=== PATIENT | female | born 1945 | race Caucasian/White ===

== ENCOUNTER 2018-05-06 06:25 | Emergency (ER) | payer MEDICARE, OTHER | END 2018-05-06 08:28 | disposition home or self-care (01) | LOC: FTE 06:25 | DX: M54.2 Cervicalgia (principal); I12.9 Hypertensive chronic kidney disease with stage 1 through stage 4 chronic kidney disease, or unspecified chronic kidney disease; N18.9 Chronic kidney disease, unspecified; E11.22 Type 2 diabetes mellitus with diabetic chronic kidney disease; Z79.82 Long term (current) use of aspirin; Z79.84 Long term (current) use of oral hypoglycemic drugs | CPT/HCPCS: 72040; 99283-25 ==

== ENCOUNTER 2018-05-08 18:23 | Inpatient (IN) | payer MEDICARE, OTHER ==
[~2018-05-08 18:23] MED LIST: CA CHLORIDE 10% 10 ML SYRINGE; NA BICARBONATE 8.4% 50 ML SYG
[2018-05-08] MEDS: ALBUTEROL 0.5% (NEB) 2.5 MG/0.5 ML AMP INH (19:28)
[2018-05-08 19:40] LABS: ADD MAN DIFF? NO
[2018-05-08 19:42] LABS: WHITE BLOOD COUNT 8.7 10^3/ul (4.8-10.8)
[2018-05-08 19:42] LABS: BASOPHILS % 0.2 % (0.0-2.0); HEMATOCRIT 30.7 % (37.0-47.0); HEMOGLOBIN 10.5 g/dl (12.0-16.0); LYMPHOCYTES # 0.7 10^3/ul (0.8-2.9); LYMPHOCYTES % 7.9 % (15.0-51.0); MEAN CORPUSCULAR HEMOGLOBIN 33.7 pg (29.0-33.0); MEAN CORPUSCULAR HGB CONC 34.2 g/dl (32.0-37.0); MEAN CORPUSCULAR VOLUME 98.4 fl (82.0-101.0); MEAN PLATELET VOLUME 11.6 fl (7.4-10.4); MONOCYTE # 0.3 10^3/ul (0.3-0.9); MONOCYTES % 3.9 % (0.0-11.0); NEUTROPHIL # 7.5 10^3/ul (1.6-7.5); NEUTROPHILS % 86.4 % (39.0-77.0); PLATELET COUNT 184 10^3/UL (140-415); RED BLOOD COUNT 3.12 10^6/ul (4.20-5.40); RED CELL DISTRIBUTION WIDTH 12.7 % (11.5-14.5)
[2018-05-08 19:46] LABS: INR 1.29; PROTIME 16.3 Sec (11.9-14.9); PT RATIO 1.3
[2018-05-08 19:47] LABS: PARTIAL THROMBOPLASTIN TIME 29.7 Sec (23.0-35.0)
[2018-05-08] MEDS: niCARdipine-NS 0.1MG/ML DRIP 200 ML IV (19:47)
[2018-05-08 20:17] LABS: ALANINE AMINOTRANSFERASE 164 IU/L (13-69); ALBUMIN 4.1 g/dl (3.3-4.9); ALBUMIN/GLOBULIN RATIO 1.28; ALKALINE PHOSPHATASE 176 IU/L (42-121); ANION GAP 26 (8-16); ASPARTATE AMINO TRANSFERASE 117 IU/L (15-46); BILIRUBIN,INDIRECT 0.1 mg/dl (0-1.1); BILIRUBIN,TOTAL 0.1 mg/dl (0.2-1.3); BLOOD UREA NITROGEN 70 mg/dl (7-20); CALCIUM 8.2 mg/dl (8.4-10.2); CARBON DIOXIDE 20 mmol/L (21-31); CHLORIDE 84 mmol/L (97-110); CREATININE 6.35 mg/dl (0.44-1.00); LIPASE 58 U/L (23-300); SODIUM 122 mmol/L (135-144); TOTAL PROTEIN 7.3 g/dl (6.1-8.1)
[2018-05-08 20:19] LABS: POTASSIUM 7.9 mmol/L (3.5-5.1)
[2018-05-08 20:20] LABS: GLUCOSE 583 mg/dl (70-220)
[2018-05-08 20:30] LABS: TROPONIN-I < 0.012 ng/ml (0.000-0.120)
[2018-05-08] MEDS: IODIXANOL LOCM 100 ML BTL ×2 (21:09→21:45)
[2018-05-08] MEDS: SOD CHLORIDE 0.9% 100 ML ×2 (21:09→21:45)
[2018-05-08] MEDS: INSULIN LISPRO 100 UNIT/ML VIAL SC (21:24)
[2018-05-08] MEDS: SOD CHLORIDE 0.9% 1,000 ML IV (22:27)
[2018-05-08] MEDS ORDERED: morphine 2 MG INJ IV (22:30)
[2018-05-08] MEDS ORDERED: NACL 0.9% 3 ML SYG IV (22:30)
[2018-05-08 22:31] LABS: HEPATITIS B SURFACE ANTIGEN NEGATIVE (NEGATIVE)
[2018-05-08] MEDS: ACCU-CHEK XX (23:00)
[2018-05-08] MEDS ORDERED: DEXTROSE 50% 50 ML SYRINGE IV (23:00)
[2018-05-08 23:26] LABS: CREATINE KINASE 127 IU/L (23-200)
[2018-05-08 23:39] LABS: CK INDEX 2.3; TROPONIN-I 0.063 ng/ml (0.000-0.120)
[2018-05-09] MEDS: INSULIN HUMAN REGULAR 100 UNIT in SOD CHLORIDE 0.9% 99 ML IV (00:48)
[2018-05-09] MEDS: niCARdipine-NS 0.1MG/ML DRIP 200 ML IV ×2 (00:49→05:31)
[2018-05-09] MEDS: ACCU-CHEK XX ×8 (01:00→07:00)
[2018-05-09] MEDS: DEXTROSE 50% 50 ML SYRINGE IV (04:25)
[2018-05-09 05:23] LABS: ADD MAN DIFF? NO
[2018-05-09 05:26] LABS: WHITE BLOOD COUNT 10.4 10^3/ul (4.8-10.8)
[2018-05-09 05:26] LABS: BASOPHILS % 0.2 % (0.0-2.0); EOSINOPHILS % 0.2 % (0.0-7.0); HEMATOCRIT 29.2 % (37.0-47.0); LYMPHOCYTES # 1.1 10^3/ul (0.8-2.9); LYMPHOCYTES % 10.3 % (15.0-51.0); MEAN CORPUSCULAR HEMOGLOBIN 33.1 pg (29.0-33.0); MEAN CORPUSCULAR HGB CONC 34.2 g/dl (32.0-37.0); MEAN CORPUSCULAR VOLUME 96.7 fl (82.0-101.0); MEAN PLATELET VOLUME 10.1 fl (7.4-10.4); MONOCYTE # 0.9 10^3/ul (0.3-0.9); MONOCYTES % 8.6 % (0.0-11.0); NEUTROPHIL # 8.3 10^3/ul (1.6-7.5); NEUTROPHILS % 79.4 % (39.0-77.0); NUCLEATED RED BLOOD CELLS% 0.2 /100WBC (0.0-0.0); PLATELET COUNT 203 10^3/UL (140-415); RED BLOOD COUNT 3.02 10^6/ul (4.20-5.40); RED CELL DISTRIBUTION WIDTH 12.5 % (11.5-14.5)
[2018-05-09] MEDS: DEXTROSE 5%-0.9% NACL 1,000 ML IV (05:29)
[2018-05-09] MEDS ORDERED: GLUCOSE GEL 15 GRAM TUBE PO ×2 (05:30)
[2018-05-09] MEDS ORDERED: GLUCAGON 1 MG INJ IM (05:30)
[2018-05-09] MEDS ORDERED: GLUCOSE GEL 15 GRAM TUBE BUCCAL (05:30)
[2018-05-09] MEDS ORDERED: DEXTROSE 50% 50 ML SYRINGE IV ×2 (05:30)
[2018-05-09 05:48] LABS: CREATINE KINASE 109 IU/L (23-200)
[2018-05-09 05:49] LABS: HEMOGLOBIN A1C 9.1 % (0-5.9)
[2018-05-09 05:59] LABS: CK INDEX 2.3
[2018-05-09 06:01] LABS: TROPONIN-I 0.027 ng/ml (0.000-0.120)
[2018-05-09 06:06] LABS: ALANINE AMINOTRANSFERASE 158 IU/L (13-69); ALBUMIN 3.2 g/dl (3.3-4.9); ALBUMIN/GLOBULIN RATIO 0.94; ALKALINE PHOSPHATASE 136 IU/L (42-121); ANION GAP 17 (8-16); ASPARTATE AMINO TRANSFERASE 76 IU/L (15-46); BILIRUBIN,INDIRECT 0.4 mg/dl (0-1.1); BILIRUBIN,TOTAL 0.4 mg/dl (0.2-1.3); BLOOD UREA NITROGEN 22 mg/dl (7-20); CALCIUM 9.4 mg/dl (8.4-10.2); CARBON DIOXIDE 29 mmol/L (21-31); CHLORIDE 90 mmol/L (97-110); CREATININE 2.73 mg/dl (0.44-1.00); GLUCOSE 128 mg/dl (70-220); MAGNESIUM 1.9 mg/dl (1.7-2.5); PHOSPHORUS 3.9 mg/dl (2.5-4.9); POTASSIUM 3.8 mmol/L (3.5-5.1); SODIUM 132 mmol/L (135-144); TOTAL PROTEIN 6.6 g/dl (6.1-8.1)
[2018-05-09] MEDS: PANTOPRAZOLE 40 MG INJ IV (06:10)
[2018-05-09 06:27] LABS: CK-MB 2.88 ng/ml (0.0-2.4)
[2018-05-09] MEDS: INSULIN ASPART [NOVOLOG] 3 ML PEN SC ×4 (07:35→21:00)
[2018-05-09] MEDS ORDERED: SODIUM CHLORIDE 0.9% 1L BAG IV (11:00)
[2018-05-09 12:18] LABS: HAAIG REFLEX REFLEX FILED
[2018-05-09 12:54] LABS: TROPONIN-I 0.036 ng/ml (0.000-0.120)
[2018-05-09 13:13] LABS: HEPATITIS B SURFACE ANTIGEN NEGATIVE (NEGATIVE)
[2018-05-09 13:31] LABS: HEPATITIS B CORE ANTIBODY NEGATIVE (NEGATIVE); HEPATITIS C VIRAL ANTIBODY NEGATIVE (NEGATIVE)
[2018-05-09] MEDS: METOCLOPRAMIDE 10 MG TAB PO ×2 (14:38→21:14)
[2018-05-09 19:47] LABS: TROPONIN-I 0.056 ng/ml (0.000-0.120)
[2018-05-09] MEDS: ATORVASTATIN 40 MG TAB PO (21:14)
[2018-05-09] MEDS: FERROUS SULFATE (EC) 325 MG TAB PO (21:14)
[2018-05-09] MEDS: ONDANSETRON 4 MG INJ IV (23:54)
[2018-05-10] MEDS: DEXTROSE 5%-0.9% NACL 1,000 ML IV (04:09)
[2018-05-10 05:16] LABS: ADD MAN DIFF? NO
[2018-05-10 05:20] LABS: WHITE BLOOD COUNT 10.6 10^3/ul (4.8-10.8)
[2018-05-10 05:20] LABS: BASOPHILS % 0.2 % (0.0-2.0); EOSINOPHILS # 0.2 10^3/ul (0.0-0.5); EOSINOPHILS % 1.7 % (0.0-7.0); HEMATOCRIT 29.4 % (37.0-47.0); LYMPHOCYTES # 1.5 10^3/ul (0.8-2.9); MEAN CORPUSCULAR HEMOGLOBIN 33.9 pg (29.0-33.0); MEAN CORPUSCULAR VOLUME 99.7 fl (82.0-101.0); MEAN PLATELET VOLUME 10.1 fl (7.4-10.4); MONOCYTE # 1.3 10^3/ul (0.3-0.9); MONOCYTES % 12.5 % (0.0-11.0); NEUTROPHIL # 7.5 10^3/ul (1.6-7.5); NEUTROPHILS % 70.8 % (39.0-77.0); PLATELET COUNT 194 10^3/UL (140-415); RED BLOOD COUNT 2.95 10^6/ul (4.20-5.40); RED CELL DISTRIBUTION WIDTH 13.2 % (11.5-14.5)
[2018-05-10] MEDS: PANTOPRAZOLE 40 MG INJ IV (05:26)
[2018-05-10 05:54] LABS: CHOL/HDL RATIO 3.3 RATIO; HDL CHOLESTEROL 42 mg/dl (33-92); LDL CHOLESTEROL,CALCULATED 44 mg/dl; TRIGLYCERIDES 273 mg/dl (0-149)
[2018-05-10 05:54] LABS: CHOLESTEROL 141 mg/dl (100-200)
[2018-05-10 05:58] LABS: ALANINE AMINOTRANSFERASE 105 IU/L (13-69); ALBUMIN 2.9 g/dl (3.3-4.9); ALBUMIN/GLOBULIN RATIO 0.85; ALKALINE PHOSPHATASE 115 IU/L (42-121); ANION GAP 16 (8-16); ASPARTATE AMINO TRANSFERASE 41 IU/L (15-46); BILIRUBIN,INDIRECT 0.1 mg/dl (0-1.1); BILIRUBIN,TOTAL 0.1 mg/dl (0.2-1.3); BLOOD UREA NITROGEN 43 mg/dl (7-20); CARBON DIOXIDE 27 mmol/L (21-31); CHLORIDE 91 mmol/L (97-110); CREATININE 4.37 mg/dl (0.44-1.00); GLUCOSE 93 mg/dl (70-220); POTASSIUM 4.3 mmol/L (3.5-5.1); SODIUM 130 mmol/L (135-144); TOTAL PROTEIN 6.3 g/dl (6.1-8.1)
[2018-05-10] MEDS: INSULIN ASPART [NOVOLOG] 3 ML PEN SC ×4 (07:35→20:29)
[2018-05-10] MEDS: FERROUS SULFATE (EC) 325 MG TAB PO ×2 (09:43→20:19)
[2018-05-10] MEDS: FOLIC ACID 1 MG TAB PO (09:43)
[2018-05-10] MEDS: MULTIVIT/CA CARB/B CMPLX/FA TAB PO (09:43)
[2018-05-10] MEDS: METOCLOPRAMIDE 10 MG TAB PO ×3 (09:44→20:19)
[2018-05-10] MEDS: ACETAMINOPHEN 325 MG TAB PO (13:52)
[2018-05-10] MEDS: MUPIROCIN 2% 22 GM OINT TOP ×2 (15:33→20:30)
[2018-05-10] MEDS: DOCUSATE SODIUM 100 MG CAP PO (20:19)
[2018-05-10] MEDS: ATORVASTATIN 40 MG TAB PO (20:19)
[2018-05-11] MEDS: PANTOPRAZOLE 40 MG INJ IV (05:17)
[2018-05-11 05:37] LABS: ADD MAN DIFF? NO
[2018-05-11 05:46] LABS: WHITE BLOOD COUNT 9.1 10^3/ul (4.8-10.8)
[2018-05-11 05:46] LABS: BASOPHILS % 0.1 % (0.0-2.0); EOSINOPHILS # 0.2 10^3/ul (0.0-0.5); EOSINOPHILS % 1.9 % (0.0-7.0); HEMATOCRIT 29.3 % (37.0-47.0); HEMOGLOBIN 9.7 g/dl (12.0-16.0); LYMPHOCYTES % 11.2 % (15.0-51.0); MEAN CORPUSCULAR HEMOGLOBIN 33.7 pg (29.0-33.0); MEAN CORPUSCULAR HGB CONC 33.1 g/dl (32.0-37.0); MEAN CORPUSCULAR VOLUME 101.7 fl (82.0-101.0); MEAN PLATELET VOLUME 9.9 fl (7.4-10.4); MONOCYTES % 10.4 % (0.0-11.0); NEUTROPHIL # 6.9 10^3/ul (1.6-7.5); NEUTROPHILS % 75.9 % (39.0-77.0); NUCLEATED RED BLOOD CELLS% 0.2 /100WBC (0.0-0.0); PLATELET COUNT 176 10^3/UL (140-415); RED BLOOD COUNT 2.88 10^6/ul (4.20-5.40); RED CELL DISTRIBUTION WIDTH 13.2 % (11.5-14.5)
[2018-05-11 06:18] LABS: PHOSPHORUS 3.1 mg/dl (2.5-4.9)
[2018-05-11 06:20] LABS: ANION GAP 11 (8-16); BLOOD UREA NITROGEN 32 mg/dl (7-20); CALCIUM 8.5 mg/dl (8.4-10.2); CARBON DIOXIDE 30 mmol/L (21-31); CHLORIDE 98 mmol/L (97-110); CREATININE 3.97 mg/dl (0.44-1.00); GLUCOSE 153 mg/dl (70-220); POTASSIUM 4.6 mmol/L (3.5-5.1); SODIUM 134 mmol/L (135-144)
[2018-05-11] MEDS: INSULIN ASPART [NOVOLOG] 3 ML PEN SC ×5 (07:33→20:34)
[2018-05-11] MEDS: DOCUSATE SODIUM 100 MG CAP PO ×2 (08:14→20:31)
[2018-05-11] MEDS: FOLIC ACID 1 MG TAB PO (08:15)
[2018-05-11] MEDS: MULTIVIT/CA CARB/B CMPLX/FA TAB PO (08:15)
[2018-05-11] MEDS: METOCLOPRAMIDE 10 MG TAB PO ×3 (08:15→20:32)
[2018-05-11] MEDS: FERROUS SULFATE (EC) 325 MG TAB PO ×2 (08:15→20:32)
[2018-05-11] MEDS: MUPIROCIN 2% 22 GM OINT TOP ×2 (08:28→20:35)
[2018-05-11] MEDS ORDERED: BISACODYL (EC) 5 MG TAB PO (12:00)
[2018-05-11] MEDS: LINAGLIPTIN 5 MG TABLET PO ×2 (12:00→17:12)
[2018-05-11] MEDS ORDERED: BISACODYL 10 MG SUPP PR (12:00)
[2018-05-11] MEDS ORDERED: DEXTROSE 50% 50 ML SYRINGE IV ×2 (12:30)
[2018-05-11] MEDS ORDERED: GLUCOSE GEL 15 GRAM TUBE PO ×2 (12:30)
[2018-05-11] MEDS ORDERED: GLUCAGON 1 MG INJ IM (12:30)
[2018-05-11] MEDS ORDERED: GLUCOSE GEL 15 GRAM TUBE BUCCAL (12:30)
[2018-05-11] MEDS ORDERED: ALBUMIN HUMAN 25% 50 ML IV (17:30)
[2018-05-11] MEDS ORDERED: SODIUM CHLORIDE 0.9% 1L BAG IV (17:30)
[2018-05-11] MEDS: ATORVASTATIN 40 MG TAB PO (20:32)
[2018-05-12] MEDS: PANTOPRAZOLE (EC) 40 MG TAB PO (05:16)
[2018-05-12 07:47] LABS: ADD MAN DIFF? NO
[2018-05-12 07:53] LABS: WHITE BLOOD COUNT 10.4 10^3/ul (4.8-10.8)
[2018-05-12 07:53] LABS: BASOPHILS % 0.3 % (0.0-2.0); EOSINOPHILS # 0.3 10^3/ul (0.0-0.5); EOSINOPHILS % 2.4 % (0.0-7.0); HEMATOCRIT 29.7 % (37.0-47.0); LYMPHOCYTES # 1.2 10^3/ul (0.8-2.9); LYMPHOCYTES % 11.7 % (15.0-51.0); MEAN CORPUSCULAR HEMOGLOBIN 33.8 pg (29.0-33.0); MEAN CORPUSCULAR HGB CONC 33.7 g/dl (32.0-37.0); MEAN CORPUSCULAR VOLUME 100.3 fl (82.0-101.0); MEAN PLATELET VOLUME 10.3 fl (7.4-10.4); MONOCYTE # 0.9 10^3/ul (0.3-0.9); MONOCYTES % 8.8 % (0.0-11.0); NEUTROPHILS % 76.1 % (39.0-77.0); PLATELET COUNT 175 10^3/UL (140-415); RED BLOOD COUNT 2.96 10^6/ul (4.20-5.40); RED CELL DISTRIBUTION WIDTH 13.3 % (11.5-14.5)
[2018-05-12] MEDS: INSULIN ASPART [NOVOLOG] 3 ML PEN SC ×7 (08:00→21:00)
[2018-05-12] MEDS: FERROUS SULFATE (EC) 325 MG TAB PO ×2 (08:17→21:14)
[2018-05-12] MEDS: METOCLOPRAMIDE 10 MG TAB PO ×3 (08:17→21:16)
[2018-05-12] MEDS: FOLIC ACID 1 MG TAB PO (08:17)
[2018-05-12] MEDS: DOCUSATE SODIUM 100 MG CAP PO ×2 (08:17→21:15)
[2018-05-12] MEDS: LINAGLIPTIN 5 MG TABLET PO (08:17)
[2018-05-12] MEDS: MULTIVIT/CA CARB/B CMPLX/FA TAB PO (08:17)
[2018-05-12 08:19] LABS: ANION GAP 15 (8-16); BLOOD UREA NITROGEN 47 mg/dl (7-20); CALCIUM 8.2 mg/dl (8.4-10.2); CARBON DIOXIDE 24 mmol/L (21-31); CHLORIDE 96 mmol/L (97-110); CREATININE 5.62 mg/dl (0.44-1.00); GLUCOSE 83 mg/dl (70-220); POTASSIUM 4.4 mmol/L (3.5-5.1); SODIUM 131 mmol/L (135-144)
[2018-05-12] MEDS: MUPIROCIN 2% 22 GM OINT TOP ×2 (08:29→21:16)
[2018-05-12] MEDS ORDERED: SODIUM CHLORIDE 0.9% 1L BAG IV (15:30)
[2018-05-12] MEDS ORDERED: ALBUMIN HUMAN 25% 50 ML IV (15:30)
[2018-05-12] MEDS: ATORVASTATIN 40 MG TAB PO (21:14)
[2018-05-12] MEDS: ACETAMINOPHEN 325 MG TAB PO (21:14)
[2018-05-12] MEDS: hydrALAzine 20 MG INJ IV (22:15)
[2018-05-13] MEDS: PANTOPRAZOLE (EC) 40 MG TAB PO (05:52)
[2018-05-13 07:06] LABS: ANION GAP 14 (8-16); BLOOD UREA NITROGEN 34 mg/dl (7-20); CARBON DIOXIDE 27 mmol/L (21-31); CHLORIDE 98 mmol/L (97-110); CREATININE 4.05 mg/dl (0.44-1.00); GLUCOSE 153 mg/dl (70-220); POTASSIUM 4.4 mmol/L (3.5-5.1); SODIUM 135 mmol/L (135-144)
[2018-05-13] MEDS: LINAGLIPTIN 5 MG TABLET PO (09:23)
[2018-05-13] MEDS: METOCLOPRAMIDE 10 MG TAB PO ×2 (09:23→12:47)
[2018-05-13] MEDS: FOLIC ACID 1 MG TAB PO (09:23)
[2018-05-13] MEDS: MULTIVIT/CA CARB/B CMPLX/FA TAB PO (09:23)
[2018-05-13] MEDS: FERROUS SULFATE (EC) 325 MG TAB PO (09:23)
[2018-05-13] MEDS: DOCUSATE SODIUM 100 MG CAP PO (09:23)
[2018-05-13] MEDS: MUPIROCIN 2% 22 GM OINT TOP (09:24)
[2018-05-13] MEDS: INSULIN ASPART [NOVOLOG] 3 ML PEN SC ×4 (09:26→12:51)
== END 2018-05-13 14:25 | disposition home or self-care (01) | DRG 64 ==
LOC: 2NE 05-11 12:30 → E/R 18:23 → ICU 20:26
PROC: 5A1D70Z Performance of Urinary Filtration, Intermittent, Less than 6 Hours Per Day (ICD-10-PCS; principal; 2018-05-08)
DX: I61.5 Nontraumatic intracerebral hemorrhage, intraventricular (principal); N18.6 End stage renal disease; I12.0 Hypertensive chronic kidney disease with stage 5 chronic kidney disease or end stage renal disease; I16.1 Hypertensive emergency; E87.1 Hypo-osmolality and hyponatremia; E87.2 Acidosis; E87.5 Hyperkalemia; E11.65 Type 2 diabetes mellitus with hyperglycemia; E11.22 Type 2 diabetes mellitus with diabetic chronic kidney disease; E78.5 Hyperlipidemia, unspecified; R00.1 Bradycardia, unspecified; I25.10 Atherosclerotic heart disease of native coronary artery without angina pectoris; R79.89 Other specified abnormal findings of blood chemistry; Z79.82 Long term (current) use of aspirin; Z99.2 Dependence on renal dialysis; Z79.84 Long term (current) use of oral hypoglycemic drugs
CPT/HCPCS: 36415; 70450; 70496; 70498; 70551; 71045; 72040; 76705; 80048; 80053; 80061; 82550; 82553; 82962; 83036; 83690; 83735; 84100; 84484; 85025; 85610; 85730; 86704; 86709; 86803; 87081; 87340; 90935; 92610; 93005; 93306; 94644; 96374; 97110; 97116; 97161; 97167; 97530; 99283-25; 99291-25

== ENCOUNTER → 2018-05-26 | Outpatient (CLI) | payer MEDICARE, OTHER | END | disposition home or self-care (01) | LOC: U/S 09:05 | DX: R18.8 Other ascites (principal) | CPT/HCPCS: 76700 ==

== ENCOUNTER 2018-05-29 08:07 | Inpatient (IN) | payer MEDICARE, OTHER ==
[2018-05-29] MEDS: VANCOMYCIN 1 GM (PMX) 250 ML IVPB (08:30)
[2018-05-29 08:38] LABS: ADD MAN DIFF? NO
[2018-05-29] MEDS ORDERED: ACETAMINOPHEN 325 MG SUPP PR (08:39)
[2018-05-29 08:40] LABS: ABNORMAL IP MESSAGE 1; BASOPHILS % 0.2 % (0.0-2.0); EOSINOPHILS % 0.4 % (0.0-7.0); HEMATOCRIT 29.6 % (37.0-47.0); HEMOGLOBIN 9.6 g/dl (12.0-16.0); LYMPHOCYTES # 0.5 10^3/ul (0.8-2.9); LYMPHOCYTES % 5.9 % (15.0-51.0); MEAN CORPUSCULAR HEMOGLOBIN 32.9 pg (29.0-33.0); MEAN CORPUSCULAR HGB CONC 32.4 g/dl (32.0-37.0); MEAN CORPUSCULAR VOLUME 101.4 fl (82.0-101.0); MEAN PLATELET VOLUME 9.2 fl (7.4-10.4); MONOCYTE # 0.9 10^3/ul (0.3-0.9); MONOCYTES % 9.5 % (0.0-11.0); NEUTROPHIL # 7.6 10^3/ul (1.6-7.5); NEUTROPHILS % 83.7 % (39.0-77.0); PLATELET COUNT 218 10^3/UL (140-415); RED BLOOD COUNT 2.92 10^6/ul (4.20-5.40); RED CELL DISTRIBUTION WIDTH 13.8 % (11.5-14.5)
[2018-05-29 08:40] LABS: WHITE BLOOD COUNT 9.1 10^3/ul (4.8-10.8)
[2018-05-29 08:43] LABS: POSITIVE DIFF @See below
[2018-05-29] MEDS: ACETAMINOPHEN 650 MG SUPP PR (08:48)
[2018-05-29] MEDS: CEFEPIME 2GM/50 ML (PMX) 50 ML IVPB (08:52)
[2018-05-29] MEDS: SODIUM CHLORIDE 0.9% 1L BAG IV* (08:53)
[2018-05-29 09:00] LABS: INR 1.13; PROTIME 14.7 Sec (11.9-14.9); PT RATIO 1.1
[2018-05-29 09:01] LABS: PARTIAL THROMBOPLASTIN TIME 37.4 Sec (23.0-35.0)
[2018-05-29 09:08] LABS: ANION GAP 12 (5-13); BLOOD UREA NITROGEN 41 mg/dl (7-20); CALCIUM 8.9 mg/dl (8.4-10.2); CARBON DIOXIDE 28 mmol/L (21-31); CHLORIDE 92 mmol/L (97-110); GLUCOSE 221 mg/dl (70-220); POTASSIUM 4.8 mmol/L (3.5-5.1); SODIUM 132 mmol/L (135-144)
[2018-05-29 09:19] LABS: AADO2 Arterial 42.5 mmHg (7.0-24.0); Allen Test ACCEPTAB; Arterial Base Excess 3.6 mmol/L (-3.0-3); Arterial COHb 0.7 % (0.0-3.0); Arterial Fraction of Oxyhgb 88.3 % (93.0-99.0); Arterial HCO3 28.2 mmol/L (22.0-26.0); Arterial MetHb 0.1 % (0.0-1.5); Arterial Total Hemglobin 10.1 g/dl (12.0-18.0); Arterial pCO2 42.5 mmhg (35-45); MODE ROOM AIR; Site Right Radial
[2018-05-29 09:20] LABS: TROPONIN-I 0.027 ng/ml (0.000-0.120)
[2018-05-29] MEDS ORDERED: ACETAMINOPHEN 325 MG TAB PO (11:00)
[2018-05-29] MEDS ORDERED: ONDANSETRON 4 MG INJ IV (11:00)
[2018-05-29 14:26] LABS: LACTIC ACID 1.7 mmol/L (0.5-2.0)
[2018-05-29 14:28] LABS: AMMONIA < 9 umol/l (9-30)
[2018-05-29] MEDS ORDERED: DOCUSATE SODIUM 100 MG CAP PO (15:00)
[2018-05-29] MEDS ORDERED: BISACODYL (EC) 5 MG TAB PO (15:00)
[2018-05-29] MEDS ORDERED: ACETAMINOPHEN 650 MG SUPP PR (15:00)
[2018-05-29] MEDS ORDERED: NACL 0.9% 3 ML SYG IV (15:00)
[2018-05-29] MEDS ORDERED: DEXTROSE 50% 50 ML SYRINGE IV ×2 (15:30)
[2018-05-29] MEDS ORDERED: GLUCAGON 1 MG INJ IM (15:30)
[2018-05-29] MEDS ORDERED: GLUCOSE GEL 15 GRAM TUBE PO ×2 (15:30)
[2018-05-29] MEDS ORDERED: GLUCOSE GEL 15 GRAM TUBE BUCCAL (15:30)
[2018-05-29] MEDS: PIPER-TAZO 2.25 GM (PMX) 50 ML IVPB ×2 (16:55→22:35)
[2018-05-29] MEDS: CALCIUM ACETATE 667 MG CAP PO (17:38)
[2018-05-29] MEDS: INSULIN ASPART [NOVOLOG] 3 ML PEN SC ×2 (18:46→20:42)
[2018-05-29 19:08] LABS: CREATINE KINASE 151 IU/L (23-200)
[2018-05-29 19:21] LABS: CK INDEX 0.9; CK-MB 1.38 ng/ml (0.0-2.4); TROPONIN-I 0.027 ng/ml (0.000-0.120)
[2018-05-29] MEDS: ISOSORBIDE DINITRATE 20 MG TAB PO (20:36)
[2018-05-29] MEDS: ATORVASTATIN 40 MG TAB PO (20:36)
[2018-05-29] MEDS: FERROUS SULFATE (EC) 325 MG TAB PO (20:36)
[2018-05-29] MEDS: ALBUTEROL/IPRATROPIUM (NEB) 3 ML AMP HHN (20:52)
[2018-05-30 01:00] LABS: CREATINE KINASE 176 IU/L (23-200)
[2018-05-30 01:12] LABS: CK-MB 1.75 ng/ml (0.0-2.4)
[2018-05-30] MEDS: ACCU-CHEK XX (01:41)
[2018-05-30] MEDS: PANTOPRAZOLE (EC) 40 MG TAB PO (06:08)
[2018-05-30] MEDS: PIPER-TAZO 2.25 GM (PMX) 50 ML IVPB ×3 (06:08→21:39)
[2018-05-30 07:27] LABS: CHOL/HDL RATIO 1.5 RATIO; HDL CHOLESTEROL 46 mg/dl (33-92); LDL CHOLESTEROL,CALCULATED 10 mg/dl; TRIGLYCERIDES 76 mg/dl (0-149)
[2018-05-30 07:27] LABS: CHOLESTEROL 71 mg/dl (100-200)
[2018-05-30 07:30] LABS: ALANINE AMINOTRANSFERASE 30 IU/L (13-69); ALBUMIN 3.2 g/dl (3.3-4.9); ALBUMIN/GLOBULIN RATIO 1.03; ALKALINE PHOSPHATASE 122 IU/L (42-121); ANION GAP 11 (5-13); ASPARTATE AMINO TRANSFERASE 41 IU/L (15-46); BILIRUBIN,INDIRECT 0.3 mg/dl (0-1.1); BILIRUBIN,TOTAL 0.3 mg/dl (0.2-1.3); BLOOD UREA NITROGEN 46 mg/dl (7-20); CALCIUM 8.3 mg/dl (8.4-10.2); CARBON DIOXIDE 27 mmol/L (21-31); CHLORIDE 97 mmol/L (97-110); CREATININE 6.16 mg/dl (0.44-1.00); GLUCOSE 82 mg/dl (70-220); POTASSIUM 5.2 mmol/L (3.5-5.1); SODIUM 135 mmol/L (135-144); TOTAL PROTEIN 6.3 g/dl (6.1-8.1)
[2018-05-30 07:31] LABS: HEMOGLOBIN A1C 7.9 % (0-5.9)
[2018-05-30] MEDS: INSULIN ASPART [NOVOLOG] 3 ML PEN SC ×4 (08:00→21:00)
[2018-05-30] MEDS: ALBUTEROL/IPRATROPIUM (NEB) 3 ML AMP HHN ×4 (08:00→20:45)
[2018-05-30] MEDS: MULTIVIT/CA CARB/B CMPLX/FA TAB PO (10:17)
[2018-05-30] MEDS: CALCIUM ACETATE 667 MG CAP PO ×2 (10:17→17:40)
[2018-05-30] MEDS: FOLIC ACID 1 MG TAB PO (10:17)
[2018-05-30] MEDS: FERROUS SULFATE (EC) 325 MG TAB PO ×2 (10:17→21:36)
[2018-05-30] MEDS: INFLUENZA VIRUS VACCINE 0.5 ML (DISPENSING) IM* (10:18)
[2018-05-30] MEDS: ISOSORBIDE DINITRATE 20 MG TAB PO ×3 (10:30→21:38)
[2018-05-30] MEDS: ACETAMINOPHEN 325 MG TAB PO (14:41)
[2018-05-30] MEDS: ATORVASTATIN 40 MG TAB PO (21:36)
[2018-05-31] MEDS: ALBUTEROL/IPRATROPIUM (NEB) 3 ML AMP HHN ×6 (00:20→20:23)
[2018-05-31] MEDS: ACCU-CHEK XX (02:00)
[2018-05-31] MEDS: PIPER-TAZO 2.25 GM (PMX) 50 ML IVPB ×3 (05:48→22:36)
[2018-05-31] MEDS: PANTOPRAZOLE (EC) 40 MG TAB PO (05:48)
[2018-05-31] MEDS: INSULIN ASPART [NOVOLOG] 3 ML PEN SC ×4 (08:00→20:50)
[2018-05-31] MEDS: CALCIUM ACETATE 667 MG CAP PO ×2 (08:33→18:16)
[2018-05-31] MEDS: FOLIC ACID 1 MG TAB PO (08:33)
[2018-05-31] MEDS: MULTIVIT/CA CARB/B CMPLX/FA TAB PO (08:33)
[2018-05-31] MEDS: FERROUS SULFATE (EC) 325 MG TAB PO ×2 (08:33→20:43)
[2018-05-31] MEDS: ISOSORBIDE DINITRATE 20 MG TAB PO ×2 (08:33→20:44)
[2018-05-31] MEDS: SACCHAROMYCES BOULARDII 250 MG CAP PO ×2 (18:16→20:42)
[2018-05-31] MEDS: ATORVASTATIN 10 MG TAB PO (20:47)
[2018-06-01] MEDS: ALBUTEROL/IPRATROPIUM (NEB) 3 ML AMP HHN ×6 (00:07→20:50)
[2018-06-01] MEDS: ACCU-CHEK XX (02:24)
[2018-06-01] MEDS: PANTOPRAZOLE (EC) 40 MG TAB PO (05:31)
[2018-06-01] MEDS: PIPER-TAZO 2.25 GM (PMX) 50 ML IVPB ×3 (05:31→22:02)
[2018-06-01 05:42] LABS: ADD MAN DIFF? NO
[2018-06-01 05:52] LABS: WHITE BLOOD COUNT 6.4 10^3/ul (4.8-10.8)
[2018-06-01 05:52] LABS: BASOPHILS % 0.6 % (0.0-2.0); EOSINOPHILS # 0.1 10^3/ul (0.0-0.5); HEMATOCRIT 27.9 % (37.0-47.0); HEMOGLOBIN 9.1 g/dl (12.0-16.0); LYMPHOCYTES # 1.1 10^3/ul (0.8-2.9); LYMPHOCYTES % 16.9 % (15.0-51.0); MEAN CORPUSCULAR HEMOGLOBIN 32.6 pg (29.0-33.0); MEAN CORPUSCULAR HGB CONC 32.6 g/dl (32.0-37.0); MEAN PLATELET VOLUME 9.8 fl (7.4-10.4); MONOCYTES % 14.9 % (0.0-11.0); NEUTROPHIL # 4.2 10^3/ul (1.6-7.5); NEUTROPHILS % 65.3 % (39.0-77.0); PLATELET COUNT 187 10^3/UL (140-415); RED BLOOD COUNT 2.79 10^6/ul (4.20-5.40); RED CELL DISTRIBUTION WIDTH 13.6 % (11.5-14.5)
[2018-06-01 06:10] LABS: MAGNESIUM 1.9 mg/dl (1.7-2.5)
[2018-06-01 06:10] LABS: PHOSPHORUS 3.4 mg/dl (2.5-4.9)
[2018-06-01 06:21] LABS: ANION GAP 14 (5-13); BLOOD UREA NITROGEN 35 mg/dl (7-20); CALCIUM 8.4 mg/dl (8.4-10.2); CARBON DIOXIDE 24 mmol/L (21-31); CHLORIDE 96 mmol/L (97-110); CREATININE 5.34 mg/dl (0.44-1.00); GLUCOSE 180 mg/dl (70-220); POTASSIUM 4.3 mmol/L (3.5-5.1); SODIUM 134 mmol/L (135-144)
[2018-06-01] MEDS: FOLIC ACID 1 MG TAB PO (09:00)
[2018-06-01] MEDS: ISOSORBIDE DINITRATE 20 MG TAB PO ×2 (09:00→20:38)
[2018-06-01] MEDS: MULTIVIT/CA CARB/B CMPLX/FA TAB PO (09:00)
[2018-06-01] MEDS: CALCIUM ACETATE 667 MG CAP PO ×2 (10:06→17:30)
[2018-06-01] MEDS: SACCHAROMYCES BOULARDII 250 MG CAP PO ×3 (10:06→22:03)
[2018-06-01] MEDS: FERROUS SULFATE (EC) 325 MG TAB PO ×2 (10:06→20:39)
[2018-06-01] MEDS: INSULIN ASPART [NOVOLOG] 3 ML PEN SC ×4 (10:08→20:42)
[2018-06-01] MEDS: FLUCONAZOLE 100 MG TAB PO (17:30)
[2018-06-01] MEDS: ACETAMINOPHEN 325 MG TAB PO (17:36)
[2018-06-01] MEDS: ATORVASTATIN 10 MG TAB PO (20:39)
[2018-06-02] MEDS: ALBUTEROL/IPRATROPIUM (NEB) 3 ML AMP HHN ×6 (00:40→20:13)
[2018-06-02] MEDS: ACCU-CHEK XX (02:00)
[2018-06-02] MEDS: PANTOPRAZOLE (EC) 40 MG TAB PO (06:27)
[2018-06-02] MEDS: PIPER-TAZO 2.25 GM (PMX) 50 ML IVPB ×3 (06:27→21:19)
[2018-06-02] MEDS: ISOSORBIDE DINITRATE 20 MG TAB PO ×2 (08:19→21:15)
[2018-06-02] MEDS: FOLIC ACID 1 MG TAB PO (08:19)
[2018-06-02] MEDS: MULTIVIT/CA CARB/B CMPLX/FA TAB PO (08:19)
[2018-06-02] MEDS: SACCHAROMYCES BOULARDII 250 MG CAP PO ×2 (08:19→21:13)
[2018-06-02] MEDS: FERROUS SULFATE (EC) 325 MG TAB PO ×2 (08:20→21:13)
[2018-06-02] MEDS: CALCIUM ACETATE 667 MG CAP PO ×2 (08:20→17:53)
[2018-06-02] MEDS: INSULIN ASPART [NOVOLOG] 3 ML PEN SC ×5 (08:23→21:00)
[2018-06-02] MEDS: ACETAMINOPHEN 325 MG TAB PO (13:00)
[2018-06-02] MEDS ORDERED: ALBUMIN HUMAN 25% 50 ML IV (15:00)
[2018-06-02] MEDS ORDERED: SODIUM CHLORIDE 0.9% 1L BAG IV (15:00)
[2018-06-02] MEDS: FLUCONAZOLE 100 MG/50 ML (PMX) 50 ML IVPB (16:29)
[2018-06-02] MEDS: ATORVASTATIN 10 MG TAB PO (21:13)
[2018-06-03] MEDS: ALBUTEROL/IPRATROPIUM (NEB) 3 ML AMP HHN ×4 (00:18→14:19)
[2018-06-03] MEDS: ACCU-CHEK XX (02:00)
[2018-06-03] MEDS: ACETAMINOPHEN 325 MG TAB PO (04:53)
[2018-06-03 05:44] LABS: ADD MAN DIFF? NO
[2018-06-03 05:53] LABS: WHITE BLOOD COUNT 7.5 10^3/ul (4.8-10.8)
[2018-06-03 05:53] LABS: BASOPHILS % 0.5 % (0.0-2.0); EOSINOPHILS # 0.1 10^3/ul (0.0-0.5); EOSINOPHILS % 1.5 % (0.0-7.0); HEMATOCRIT 28.6 % (37.0-47.0); HEMOGLOBIN 9.4 g/dl (12.0-16.0); LYMPHOCYTES # 1.7 10^3/ul (0.8-2.9); LYMPHOCYTES % 22.2 % (15.0-51.0); MEAN CORPUSCULAR HEMOGLOBIN 32.8 pg (29.0-33.0); MEAN CORPUSCULAR HGB CONC 32.9 g/dl (32.0-37.0); MEAN CORPUSCULAR VOLUME 99.7 fl (82.0-101.0); MEAN PLATELET VOLUME 9.7 fl (7.4-10.4); MONOCYTE # 0.9 10^3/ul (0.3-0.9); MONOCYTES % 11.7 % (0.0-11.0); NEUTROPHIL # 4.7 10^3/ul (1.6-7.5); NEUTROPHILS % 62.6 % (39.0-77.0); NUCLEATED RED BLOOD CELLS% 0.3 /100WBC (0.0-0.0); PLATELET COUNT 203 10^3/UL (140-415); RED BLOOD COUNT 2.87 10^6/ul (4.20-5.40); RED CELL DISTRIBUTION WIDTH 13.6 % (11.5-14.5)
[2018-06-03] MEDS: PANTOPRAZOLE (EC) 40 MG TAB PO (06:02)
[2018-06-03] MEDS: PIPER-TAZO 2.25 GM (PMX) 50 ML IVPB ×2 (06:02→15:04)
[2018-06-03 06:08] LABS: PHOSPHORUS 3.7 mg/dl (2.5-4.9)
[2018-06-03 06:08] LABS: MAGNESIUM 1.8 mg/dl (1.7-2.5)
[2018-06-03 06:18] LABS: ANION GAP 15 (5-13); BLOOD UREA NITROGEN 29 mg/dl (7-20); CALCIUM 8.8 mg/dl (8.4-10.2); CARBON DIOXIDE 24 mmol/L (21-31); CHLORIDE 95 mmol/L (97-110); CREATININE 5.04 mg/dl (0.44-1.00); GLUCOSE 163 mg/dl (70-220); POTASSIUM 4.6 mmol/L (3.5-5.1); SODIUM 134 mmol/L (135-144)
[2018-06-03] MEDS: SOD CHLORIDE 0.9% 100 ML (07:53)
[2018-06-03] MEDS: IOHEXOL 300MG/ML 150 ML BTL (07:55)
[2018-06-03] MEDS: ISOSORBIDE DINITRATE 20 MG TAB PO ×2 (08:42→15:05)
[2018-06-03] MEDS: INSULIN ASPART [NOVOLOG] 3 ML PEN SC ×2 (08:44→12:00)
[2018-06-03] MEDS: CALCIUM ACETATE 667 MG CAP PO (08:47)
[2018-06-03] MEDS: FOLIC ACID 1 MG TAB PO (08:47)
[2018-06-03] MEDS: SACCHAROMYCES BOULARDII 250 MG CAP PO (08:47)
[2018-06-03] MEDS: FERROUS SULFATE (EC) 325 MG TAB PO (08:47)
[2018-06-03] MEDS: MULTIVIT/CA CARB/B CMPLX/FA TAB PO (08:50)
[2018-06-03] MEDS: FLUCONAZOLE 100 MG/50 ML (PMX) 50 ML IVPB (15:30)
== END 2018-06-03 16:00 | disposition home or self-care (01) | DRG 871 ==
LOC: 2NE 06-02 11:13 → E/R 08:07 → 2NE 10:46
PROC: 5A1D70Z Performance of Urinary Filtration, Intermittent, Less than 6 Hours Per Day (ICD-10-PCS; 2018-05-29)
PROC: 5A1D70Z Performance of Urinary Filtration, Intermittent, Less than 6 Hours Per Day (ICD-10-PCS; 2018-05-31)
PROC: 5A1D70Z Performance of Urinary Filtration, Intermittent, Less than 6 Hours Per Day (ICD-10-PCS; principal; 2018-06-02)
DX: A41.9 Sepsis, unspecified organism (principal); J18.9 Pneumonia, unspecified organism; N18.6 End stage renal disease; I50.33 Acute on chronic diastolic (congestive) heart failure; I13.2 Hypertensive heart and chronic kidney disease with heart failure and with stage 5 chronic kidney disease, or end stage renal disease; E11.22 Type 2 diabetes mellitus with diabetic chronic kidney disease; D63.1 Anemia in chronic kidney disease; K76.0 Fatty (change of) liver, not elsewhere classified; Y95 Nosocomial condition; E78.5 Hyperlipidemia, unspecified; I49.3 Ventricular premature depolarization; I25.10 Atherosclerotic heart disease of native coronary artery without angina pectoris; I73.9 Peripheral vascular disease, unspecified; Z99.2 Dependence on renal dialysis; Z79.4 Long term (current) use of insulin
CPT/HCPCS: 36600; 70450; 71045; 71270; 80048; 80053; 80061; 82140; 82550; 82553; 82803; 82962; 83036; 83605; 83735; 84100; 84484; 85025; 85610; 85730; 86850; 86900; 86901; 87040; 87070; 87081; 90686; 90935; 93005; 94640; 94664; 96374; 96375; 97161; 99291-25

== ENCOUNTER 2018-11-09 04:28 | Inpatient (IN) | payer MEDICARE, OTHER ==
[2018-11-09 04:52] LABS: ADD MAN DIFF? NO
[2018-11-09 04:55] LABS: WHITE BLOOD COUNT 6.5 10^3/ul (4.8-10.8)
[2018-11-09 04:55] LABS: BASOPHILS % 0.5 % (0.0-2.0); EOSINOPHILS # 0.1 10^3/ul (0.0-0.5); EOSINOPHILS % 1.7 % (0.0-7.0); HEMATOCRIT 31.9 % (37.0-47.0); HEMOGLOBIN 10.9 g/dl (12.0-16.0); LYMPHOCYTES # 1.2 10^3/ul (0.8-2.9); MEAN CORPUSCULAR HEMOGLOBIN 32.4 pg (29.0-33.0); MEAN CORPUSCULAR HGB CONC 34.2 g/dl (32.0-37.0); MEAN CORPUSCULAR VOLUME 94.9 fl (82.0-101.0); MEAN PLATELET VOLUME 9.5 fl (7.4-10.4); MONOCYTE # 0.9 10^3/ul (0.3-0.9); MONOCYTES % 13.3 % (0.0-11.0); NEUTROPHIL # 4.3 10^3/ul (1.6-7.5); PLATELET COUNT 258 10^3/UL (140-415); RED BLOOD COUNT 3.36 10^6/ul (4.20-5.40); RED CELL DISTRIBUTION WIDTH 14.1 % (11.5-14.5)
[2018-11-09 05:12] LABS: LACTIC ACID 1.7 mmol/L (0.5-2.0)
[2018-11-09 05:12] LABS: ALANINE AMINOTRANSFERASE 16 IU/L (13-69); ALBUMIN 3.9 g/dl (3.3-4.9); ALBUMIN/GLOBULIN RATIO 1.21; ALKALINE PHOSPHATASE 201 IU/L (42-121); ANION GAP 17 (5-13); ASPARTATE AMINO TRANSFERASE 31 IU/L (15-46); BLOOD UREA NITROGEN 40 mg/dl (7-20); CALCIUM 8.5 mg/dl (8.4-10.2); CARBON DIOXIDE 25 mmol/L (21-31); CHLORIDE 86 mmol/L (97-110); CREATININE 5.64 mg/dl (0.44-1.00); GLUCOSE 229 mg/dl (70-220); SODIUM 128 mmol/L (135-144); TOTAL PROTEIN 7.1 g/dl (6.1-8.1)
[2018-11-09 05:14] LABS: INR 1.12; PROTIME 14.5 Sec (11.9-14.9); PT RATIO 1.1
[2018-11-09 05:15] LABS: PARTIAL THROMBOPLASTIN TIME 40.3 Sec (23.0-35.0)
[2018-11-09 05:16] LABS: AADO2 Arterial 16.9 mmHg (7.0-24.0); Allen Test ACCEPTAB; Arterial Base Excess 3.5 mmol/L (-3.0-3); Arterial Blood Gas Oxygen Sat 96.8 mmHG (95.0-100.0); Arterial COHb 0.3 % (0.0-3.0); Arterial Fraction of Oxyhgb 96.3 % (93.0-99.0); Arterial HCO3 26.5 mmol/L (22.0-26.0); Arterial MetHb 0.2 % (0.0-1.5); Arterial pCO2 34.9 mmhg (35-45); MODE ROOM AIR; Site Right Radial
[2018-11-09 05:23] LABS: B-TYPE NATRIURETIC PEPTIDE 25100 PG/ML (0-125); TROPONIN-I 0.014 ng/ml (0.000-0.120)
[2018-11-09 07:23] LABS: LACTIC ACID 1.4 mmol/L (0.5-2.0)
[2018-11-09 10:17] LABS: LACTIC ACID 1.6 mmol/L (0.5-2.0)
[2018-11-09] MEDS ORDERED: glipiZIDE (XL) 2.5 MG TAB PO (10:30)
[2018-11-09] MEDS ORDERED: DOCUSATE SODIUM 100 MG CAP PO (10:30)
[2018-11-09] MEDS ORDERED: ONDANSETRON 4 MG TAB PO ×2 (10:30)
[2018-11-09] MEDS ORDERED: NACL 0.9% 3 ML SYG IV (10:30)
[2018-11-09] MEDS ORDERED: ACETAMINOPHEN 325 MG TAB PO (10:30)
[2018-11-09] MEDS ORDERED: MIDAZOLAM 1 MG/ML 2 ML INJ (11:11)
[2018-11-09] MEDS ORDERED: VERAPAMIL 5 MG INJ (11:11)
[2018-11-09] MEDS ORDERED: FENTAnyl 50 MCG/ML VIAL (11:11)
[2018-11-09] MEDS ORDERED: LIDOCAINE 1% (MDV) 20 ML INJ (11:11)
[2018-11-09] MEDS ORDERED: NITROGLYCERIN (IC) 100 MCG/ML INJ (11:11)
[2018-11-09] MEDS ORDERED: HEPARIN 1000 UNITS/ML 10 ML INJ (11:11)
[2018-11-09] MEDS ORDERED: IODIXANOL LOCM 100 ML BTL (11:11)
[2018-11-09] MEDS ORDERED: DEXTROSE 50% 50 ML SYRINGE IV ×2 (11:30)
[2018-11-09] MEDS ORDERED: GLUCOSE GEL 15 GRAM TUBE BUCCAL (11:30)
[2018-11-09] MEDS ORDERED: GLUCOSE GEL 15 GRAM TUBE PO ×2 (11:30)
[2018-11-09] MEDS ORDERED: GLUCAGON 1 MG INJ IM (11:30)
[2018-11-09] MEDS ORDERED: ACCU-CHEK XX (11:30)
[2018-11-09] MEDS ORDERED: AL HYDROX/MG HYDROX/SIMETH 30 ML CUP PO (12:30)
[2018-11-09] MEDS ORDERED: morphine 2 MG INJ IV (12:30)
[2018-11-09 14:09] LABS: CREATINE KINASE 148 IU/L (23-200)
[2018-11-09 14:12] LABS: CK INDEX 1.3; TROPONIN-I 0.026 ng/ml (0.000-0.120)
[2018-11-09] MEDS: ISOSORBIDE DINITRATE 20 MG TAB PO ×2 (16:29→21:02)
[2018-11-09 17:01] LABS: CREATINE KINASE 151 IU/L (23-200)
[2018-11-09 17:14] LABS: CK INDEX 1.1; TROPONIN-I < 0.012 ng/ml (0.000-0.120)
[2018-11-09] MEDS: INSULIN ASPART [NOVOLOG] 3 ML PEN SC ×2 (18:00→22:27)
[2018-11-09] MEDS: CHOLECALCIFEROL 1,000 UNIT TAB PO (19:30)
[2018-11-09] MEDS: FERROUS SULFATE (EC) 325 MG TAB PO ×2 (19:30→21:00)
[2018-11-09] MEDS: CALCIUM ACETATE 667 MG CAP PO ×3 (19:30→19:50)
[2018-11-09] MEDS: MULTIVIT/CA CARB/B CMPLX/FA TAB PO (19:30)
[2018-11-09] MEDS: PANTOPRAZOLE (EC) 40 MG TAB PO (19:30)
[2018-11-09] MEDS: SOD CHLORIDE 0.9% 1,000 ML IV (19:30)
[2018-11-09] MEDS: FOLIC ACID 1 MG TAB PO (19:30)
[2018-11-09] MEDS: ACCU-CHEK XX ×3 (19:30→21:00)
[2018-11-09] MEDS: MONTELUKAST 10 MG TAB PO (21:00)
[2018-11-09 22:27] LABS: HEPATITIS B SURFACE ANTIGEN NEGATIVE (NEGATIVE)
[2018-11-09 23:32] LABS: HEPATITIS B SURFACE ANTIBODY POSITIVE (NEGATIVE)
[2018-11-10] MEDS: ACCU-CHEK XX ×5 (02:00→21:00)
[2018-11-10 06:54] LABS: ADD MAN DIFF? NO
[2018-11-10 07:02] LABS: WHITE BLOOD COUNT 7.1 10^3/ul (4.8-10.8)
[2018-11-10 07:02] LABS: BASOPHILS % 0.6 % (0.0-2.0); EOSINOPHILS # 0.1 10^3/ul (0.0-0.5); EOSINOPHILS % 0.8 % (0.0-7.0); HEMATOCRIT 34.7 % (37.0-47.0); HEMOGLOBIN 11.5 g/dl (12.0-16.0); LYMPHOCYTES # 1.3 10^3/ul (0.8-2.9); LYMPHOCYTES % 18.3 % (15.0-51.0); MEAN CORPUSCULAR HEMOGLOBIN 31.5 pg (29.0-33.0); MEAN CORPUSCULAR HGB CONC 33.1 g/dl (32.0-37.0); MEAN CORPUSCULAR VOLUME 95.1 fl (82.0-101.0); MEAN PLATELET VOLUME 9.6 fl (7.4-10.4); MONOCYTE # 0.9 10^3/ul (0.3-0.9); MONOCYTES % 12.7 % (0.0-11.0); NEUTROPHIL # 4.7 10^3/ul (1.6-7.5); NEUTROPHILS % 67.2 % (39.0-77.0); PLATELET COUNT 285 10^3/UL (140-415); RED BLOOD COUNT 3.65 10^6/ul (4.20-5.40); RED CELL DISTRIBUTION WIDTH 14.6 % (11.5-14.5)
[2018-11-10 07:15] LABS: CHOLESTEROL 139 mg/dl (100-200)
[2018-11-10 07:15] LABS: HDL CHOLESTEROL 46 mg/dl (33-92); LDL CHOLESTEROL,CALCULATED 38 mg/dl; TRIGLYCERIDES 273 mg/dl (0-149)
[2018-11-10 07:17] LABS: ALANINE AMINOTRANSFERASE 17 IU/L (13-69); ALBUMIN/GLOBULIN RATIO 1.02; ALKALINE PHOSPHATASE 165 IU/L (42-121); ANION GAP 12 (5-13); ASPARTATE AMINO TRANSFERASE 37 IU/L (15-46); BILIRUBIN,INDIRECT 0.1 mg/dl (0-1.1); BILIRUBIN,TOTAL 0.1 mg/dl (0.2-1.3); BLOOD UREA NITROGEN 20 mg/dl (7-20); CARBON DIOXIDE 37 mmol/L (21-31); CHLORIDE 89 mmol/L (97-110); CREATININE 3.88 mg/dl (0.44-1.00); GLUCOSE 160 mg/dl (70-220); MAGNESIUM 2.1 mg/dl (1.7-2.5); PHOSPHORUS 3.8 mg/dl (2.5-4.9); POTASSIUM 4.3 mmol/L (3.5-5.1); SODIUM 138 mmol/L (135-144); TOTAL PROTEIN 7.9 g/dl (6.1-8.1)
[2018-11-10] MEDS: INSULIN ASPART [NOVOLOG] 3 ML PEN SC ×4 (07:36→22:04)
[2018-11-10] MEDS: ONDANSETRON 4 MG INJ IV (08:23)
[2018-11-10] MEDS: ISOSORBIDE DINITRATE 20 MG TAB PO ×3 (08:25→21:42)
[2018-11-10] MEDS: MULTIVIT/CA CARB/B CMPLX/FA TAB PO (08:26)
[2018-11-10] MEDS: LINAGLIPTIN 5 MG TABLET PO (08:26)
[2018-11-10] MEDS: CHOLECALCIFEROL 1,000 UNIT TAB PO (08:26)
[2018-11-10] MEDS: CALCIUM ACETATE 667 MG CAP PO ×2 (08:27→17:38)
[2018-11-10] MEDS: PANTOPRAZOLE (EC) 40 MG TAB PO (08:27)
[2018-11-10] MEDS: FERROUS SULFATE (EC) 325 MG TAB PO ×2 (08:27→21:41)
[2018-11-10] MEDS: FOLIC ACID 1 MG TAB PO (08:28)
[2018-11-10] MEDS: DOCUSATE SODIUM 100 MG CAP PO ×2 (12:05→21:40)
[2018-11-10] MEDS: ACETAMINOPHEN 325 MG TAB PO (13:01)
[2018-11-10] MEDS: MONTELUKAST 10 MG TAB PO (21:42)
[2018-11-11] MEDS: ACCU-CHEK XX ×5 (02:06→21:00)
[2018-11-11 06:42] LABS: ANION GAP 11 (5-13); BLOOD UREA NITROGEN 41 mg/dl (7-20); CARBON DIOXIDE 33 mmol/L (21-31); CHLORIDE 89 mmol/L (97-110); CREATININE 6.03 mg/dl (0.44-1.00); GLUCOSE 278 mg/dl (70-220); POTASSIUM 4.3 mmol/L (3.5-5.1); SODIUM 133 mmol/L (135-144)
[2018-11-11] MEDS: INSULIN ASPART [NOVOLOG] 3 ML PEN SC ×5 (07:55→21:29)
[2018-11-11] MEDS: LINAGLIPTIN 5 MG TABLET PO (08:11)
[2018-11-11] MEDS: PANTOPRAZOLE (EC) 40 MG TAB PO (08:11)
[2018-11-11] MEDS: MULTIVIT/CA CARB/B CMPLX/FA TAB PO (08:12)
[2018-11-11] MEDS: ISOSORBIDE DINITRATE 20 MG TAB PO ×3 (08:12→20:44)
[2018-11-11] MEDS: CALCIUM ACETATE 667 MG CAP PO ×2 (08:12→17:17)
[2018-11-11] MEDS: DOCUSATE SODIUM 100 MG CAP PO ×2 (08:12→20:43)
[2018-11-11] MEDS: CHOLECALCIFEROL 1,000 UNIT TAB PO (08:12)
[2018-11-11] MEDS: FOLIC ACID 1 MG TAB PO (08:12)
[2018-11-11] MEDS: FERROUS SULFATE (EC) 325 MG TAB PO ×2 (08:12→20:44)
[2018-11-11] MEDS: ACETAMINOPHEN 325 MG TAB PO (17:25)
[2018-11-11] MEDS: INSULIN GLARGINE [LANTus] (100 UNITS/ML) SYG SC (20:30)
[2018-11-11] MEDS: MONTELUKAST 10 MG TAB PO (20:43)
[2018-11-12] MEDS: ACCU-CHEK XX ×4 (02:25→17:19)
[2018-11-12] MEDS: DOCUSATE SODIUM 100 MG CAP PO (08:18)
[2018-11-12] MEDS: CALCIUM ACETATE 667 MG CAP PO ×2 (08:19→17:20)
[2018-11-12] MEDS: FERROUS SULFATE (EC) 325 MG TAB PO (08:19)
[2018-11-12] MEDS: CHOLECALCIFEROL 1,000 UNIT TAB PO (08:19)
[2018-11-12] MEDS: MULTIVIT/CA CARB/B CMPLX/FA TAB PO (08:19)
[2018-11-12] MEDS: LINAGLIPTIN 5 MG TABLET PO (08:19)
[2018-11-12] MEDS: PANTOPRAZOLE (EC) 40 MG TAB PO (08:19)
[2018-11-12] MEDS: FOLIC ACID 1 MG TAB PO (08:19)
[2018-11-12] MEDS: ISOSORBIDE DINITRATE 20 MG TAB PO ×2 (08:20→13:09)
[2018-11-12] MEDS: INSULIN ASPART [NOVOLOG] 3 ML PEN SC ×6 (08:29→17:27)
[2018-11-12] MEDS: ACETAMINOPHEN 325 MG TAB PO (13:13)
== END 2018-11-12 18:03 | disposition home or self-care (01) | DRG 286 ==
LOC: TEL 11-11 12:50 → E/R 04:28 → CCL 11:00 → SDS 11:00 → CCL 18:28 → TEL 18:28
PROC: 4A023N7 Measurement of Cardiac Sampling and Pressure, Left Heart, Percutaneous Approach (ICD-10-PCS; principal; 2018-11-09 11:00)
PROC: B2011ZZ Plain Radiography of Multiple Coronary Arteries using Low Osmolar Contrast (ICD-10-PCS; 2018-11-09 11:00)
PROC: 5A1D70Z Performance of Urinary Filtration, Intermittent, Less than 6 Hours Per Day (ICD-10-PCS; 2018-11-09 11:08)
DX: I25.119 Atherosclerotic heart disease of native coronary artery with unspecified angina pectoris (principal); J18.9 Pneumonia, unspecified organism; N18.6 End stage renal disease; E87.1 Hypo-osmolality and hyponatremia; I13.2 Hypertensive heart and chronic kidney disease with heart failure and with stage 5 chronic kidney disease, or end stage renal disease; I50.30 Unspecified diastolic (congestive) heart failure; R06.02 Shortness of breath; E78.5 Hyperlipidemia, unspecified; K21.9 Gastro-esophageal reflux disease without esophagitis; E11.9 Type 2 diabetes mellitus without complications; R00.1 Bradycardia, unspecified; Z79.4 Long term (current) use of insulin; I34.0 Nonrheumatic mitral (valve) insufficiency; Z99.2 Dependence on renal dialysis
CPT/HCPCS: 36415; 36600; 70450; 70551; 71045; 72148; 80048; 80053; 80061; 82550; 82553; 82803; 82962; 83605; 83735; 83880; 84100; 84443; 84484; 85025; 85610; 85730; 86706; 87340; 90935; 93005; 93306; 93458; 93880; 97161; 99285-25; G0378